=== PATIENT | female | born 2000 | race Caucasian/White ===

== ENCOUNTER 2023-03-25 18:34 | Emergency (ER) | payer SELFPAY ==
[~2023-03-25] VITALS: Ht 160 cm; Wt 53.2 kg
[2023-03-25 18:44] VITALS: BP 125/83; PULSE 146; RESP 18; TEMP 98.9; O2SAT 98
[2023-03-25] MEDS ORDERED: LIDOcaine/epinephrine/tetracaine TOPICAL sol 3 ML syringe TOP ONE (19:00)
[2023-03-25] MEDS ORDERED: LORazepam 1 MG tablet PO ONE (19:00)
[2023-03-25] MEDS ORDERED: LIDOCAINE 1%/EPI 1:100,000 inj. 10 ML multi-dose vial IJ ONE (19:05)
[2023-03-25] MEDS ORDERED: HYDR-3973 PO ×2 (19:21→19:48)
== END 2023-03-25 20:19 | disposition home or self-care (01) ==
LOC: ER 18:36
DX: N75.1 Abscess of Bartholin's gland (principal); Z79.899 Other long term (current) drug therapy
CPT/HCPCS: 56420; 87070; 99284; J3490; 87077; 87186; A6449